=== PATIENT | female | born 1990 | race African-American/Black ===

== ENCOUNTER 2024-03-09 10:01 | Outpatient (AMB) | payer SELFPAY ==
--- NOTE | 2024-03-09 10:08 | A.OFFPC_ITS ---
Vital Signs 03/09/24 10:09 Height 5 ft 7 in Weight 167 lb 8 oz BMI 26.2 BP 112/68 Blood Pressure Location Lt brachial Position Sitting Pulse 76 Pulse Source Pulse Oximeter Intake Visit Reasons: [employer], requests physical Intake Note: Patient is a new patient, would like referral for allergy testing, and she notices she tilts to her left after giving to her daughter in 2022. She would like her iron level. Allergies No Known Allergies Allergy (Verified 03/09/24 10:11) Medication List - Last Reconciled 03/09/24 by Juventino Hernández MD No Known Home Meds Tobacco use date assessed: 03/09/24 Dental Screening Dental Screen Date: 03/09/24 Did you have a dental visit in the last 12 months?: Yes Did you have a dental problem in the last 6 months where you did not have access to dental care?: No Was dental information given to patient?: Patient has dentist HPI [employer], requests physical HPI Details New patient Prior PCP:??No?prior?PCP Acute issue(s): Low Iron & Anemia after Irritation?of?skin?with?contact?with?certain?substances Patient?feels?that?she?list to?left?and?has?low?back?pain?and?hip/pelvis?pain?since?. PMHx: Anemia, SurgHx: None FHx: Mom: Thyroiditis Dad: Scoliosis, Brother: Scoliosis. SocHx: Nonsmoker, EtOH None. No drugs PFSH Medical History (Updated 03/09/24 @ 10:56 by Elroy Gabriel) No pertinent past medical history Surgical History (Updated 03/09/24 @ 10:15 by Kimberly Olivares CMA) No pertinent past surgical history Family History (Updated 03/09/24 @ 10:17 by Kimberly Olivares CMA) Paternal Grandmother Diabetes Paternal Uncle Diabetes Social History (Updated 03/09/24 @ 10:21 by Kimberly Olivares CMA) Household Members: Children Both parents involved: Yes (do not live with her) Caregiver staying overnight: No Housing: Apartment Are you a primary gericare aide to a significant other at home: No Do you presently have visiting nurse or other home services: No Alcohol intake: former Patient Tobacco Use Status: Former Tobacco user e-Cigarette/Vaping Use: Former Use service: No Current occupational status: employed Current occupation: nurses aide Cognitive needs: No Hearing needs: No Vision needs: Yes (reading glasses.) Female Reproductive History Menstrual Date of last menstrual period: 02/22/24 control method: none Questionnaire PHQ-9 Over the last 2 weeks, how often have you been bothered by any of the following problems? 1. Little interest or pleasure in doing things: not at all 2. Feeling down, depressed, or hopeless: not at all 3. Trouble falling or staying asleep, or sleeping too much: not at all 4. Feeling tired or having little energy: nearly every day 5. Poor appetite or overeating: not at all 6. Feeling bad about yourself - or that you are a failure or have let yourself or your family down: not at all 7. Trouble concentrating on things, such as reading the newspaper or watching television: several days 8. Moving or speaking so slowly that other people could have noticed. Or the opposite - being so fidgety or restless that you have been moving around a lot more than usual: not at all 9. Thoughts that you would be better off or of hurting yourself in some way: not at all Total score: 4 Depression Screening Interpretation: Negative Depression Screening Done: Yes 05211 - PHQ-9 Billing: Yes Source: Developed by Drs. Maxwell Juarez, Mahsa Abbott, Bert Anna and colleagues, with an educational moshe from [employer]. Thrive Questionnaire Date Thrive assessed: 03/09/24 I am a: Patient What is your living situation today?: I have a steady place to live Within the past 12 months, did the food you bought not last and you didn't have the money to get more?: Never true Within the past 12 months, did you worry whether your food would run out before you got money to buy more?: Never true Do you have trouble paying for medicines?: No Do you have trouble getting transportation to medical appointments?: No Do you have trouble paying your heating and electricity bill?: No Do you have trouble taking care of your child, family member or friend?: No Do you have trouble with day-to-day activities such as bathing, preparing meals, shopping, managing finances, etc.?: No Are you currently unemployed and looking for a job?: No Are you interested in more education?: Yes THRIVE Score: 0 AUDIT C Alcohol Use Questionnaire (AUDIT-C) 1. How often do you have a drink containing alcohol?: Never 3. How often do you have six or more drinks on one occasion?: Never Total Score: 0 ZAN-7 AMB Questionnaire ZAN-7 Date ZAN - 7 assessed: 03/09/24 Feeling nervous, anxious, or on edge: 0 = Not at all Not being able to stop or control worryin = Not at all Worrying too much about different things: 0 = Not at all Trouble relaxin = Not at all Being so restless that it is hard to sit still: 0 = Not at all Becoming easily annoyed or irritable: 0 = Not at all Feeling afraid as if something awful might happen: 0 = Not at all Total ZAN-7 score (0-4 normal; 5-9 mild; 10-14 moderate; 15-21 severe): 0 Source: Developed by Drs. Maxwell Juarez, Mahsa Abbott, Bert Anna and colleagues, with an educational moshe from [employer]. ZAN-7 Assessment Billing ZAN-7 Assessment Tool: ZAN-7 Assessment 06294 Review of Systems Const Denies chills, Denies fatigue, Denies fever(s), Denies headache(s) and Denies weakness ENT Denies dizziness and Denies headache(s) Card Denies chest pain, Denies lightheadedness, Denies dyspnea and Denies other (Palpitations) Resp Denies cough, Denies dyspnea, Denies wheezing and Denies other ( shortness of breath) Musc Details: Some?low?back?pain?with?discomfort?in?pelvis?and?hips?as?well.??Patient?feels?th at?she?leans?to?the?left?side.??Started?with?. Denies numbness and Denies tingling Skin/Breast Details: Irritation?of?skin?with?contact?with?certain?things?such?as?gloves. Neuro Denies dizziness, Denies headache(s), Denies numbness, Denies tingling, Denies paresthesias and Denies weakness Psych Denies anxiety and Denies depression Endo Denies fatigue Aller/Immun Denies wheezing Physical exam (Primary Care) Vital Signs: Last Vital Signs Pulse 76 03/09/24 10:09 BP 112/68 03/09/24 10:09 BMI result Body Mass Index 26.2 Tobacco/Smoking Status: Tobacco use Status Tobacco use date assessed 03/09/24 03/09/24 10:30 Patient Tobacco Use Status Former Tobacco user 03/09/24 10:30 e-Cigarette/Vaping Use Former Use 03/09/24 10:30 PHQ-9: PHQ-9 Score PHQ-9: Total score 4 03/09/24 10:43 Depression Screening Interpretation: Negative Thrive Assessment: Date of Thrive Assessment Date Thrive assessed 03/09/24 03/09/24 10:30 Const General: no acute distress and well developed Nutritional Appearance: well nourished Orientation/consciousness: patient oriented x3 HENMT Head: Yes normocephalic and Yes atraumatic Eyes General: appearance normal, both eyes and all related structures Pupils: Equal, round and reactive pupils present EOM: EOMs intact bilaterally Resp Effort & Inspection: normal respiratory effort Auscultation: clear to auscultation bilaterally Cardio Rate: regular rate Rhythm: regular rhythm Heart sounds: S1 normal heart sound present, S2 normal heart sound present, no gallops, no murmurs and no rubs Back/Spine/Pelvis Other: Posture?and?carriage?appear?normal.??Normal?gait. Neuro General: patient oriented x3 and gait normal Cranial nerves: Yes Equal, round and reactive pupils present Psych Affect: normal affect Assessment and Plan Assessment & Plan (1) Allergies: Code(s): T78.40XA - Allergy, unspecified, initial encounter Plan: Referred?to?immunology?for?testing?as?per?patient?request (2) History of anemia: Code(s): Z86.2 - Personal history of diseases of the blood and blood-forming organs and certain disorders involving the immune mechanism Plan: Check?CBC?and?iron?level (3) Low back pain: Code(s): M54.50 - Low back pain, unspecified Plan: Low?back?pain?and?hip?pain?with?laxity?of?muscles?tendons?and?ligaments?of?the?l umbar?spine?and?pelvis/hips?since?. Start?physical?therapy (4) Laboratory exam ordered as part of routine general medical examination: Code(s): Z00.00 - Encounter for general adult medical examination without abnormal findings Plan: Check?lab Orders: Orders Comprehensive [place]. Panel Fast Today Z00.00 - Encounter for general adult medical examination without abnormal findings Complete Blood Count Auto Diff Today Z00.00 - Encounter for general adult medical examination without abnormal findings Microalbumin, Random (w Creat) Today I10 - Essential (primary) hypertension IRON PROFILE Today Z00.00 - Encounter for general adult medical examination without abnormal findings PT Evaluation and Treatment Today M54.50 - Low back pain, unspecified Lipid Panel Today Z00.00 - Encounter for general adult medical examination without abnormal findings TSH reflex Free T4 Today Z00.00 - Encounter for general adult medical examination without abnormal findings UA and rflx microscopic Today Z00.00 - Encounter for general adult medical examination without abnormal findings Vitamin B12 and Folate Today E53.8 - Deficiency of other specified B group vitamins CT NG by PCR Today Z11.3 - Encounter for screening for infections with a predominantly sexual mode of transmission Hepatitis B,C Profile Today Z11.3 - Encounter for screening for infections with a predominantly sexual mode of transmission Syphilis Screen Today Z11.3 - Encounter for screening for infections with a predominantly sexual mode of transmission HIV Ab/Ag Today Z11.3 - Encounter for screening for infections with a predominantly sexual mode of transmission Referrals Allergy & Immunology Referral T78.40XA - Allergy, unspecified, initial encounter Coding Level of Care Code New Pt Level 3 (68863) Diagnoses Allergies T78.40XA History of anemia Z86.2 Low back pain M54.50 Laboratory exam ordered as part of routine general medical examination Z00.00 Additional Codes ZAN-7 Assessment Billing - ZAN-7 Assessment Tool: ZAN-7 Assessment [id number] ([id number])
[2024-03-09 10:09] VITALS: BP 112/68; PULSE 76; BMI 26.2
== END 2024-03-09 11:13 | disposition home or self-care (01) ==
PROVIDERS: PCP Family Medicine; Visit Provider Family Medicine
DX: T78.40XA Allergy, unspecified, initial encounter (principal); Z86.2 Personal history of diseases of the blood and blood-forming organs and certain disorders involving the immune mechanism; M54.50 Low back pain, unspecified; Z00.00 Encounter for general adult medical examination without abnormal findings
CPT/HCPCS: 99203

== ENCOUNTER 2024-03-09 11:28 | Outpatient (REF) | payer OTHER, SELFPAY ==
[2024-03-09 15:04] LABS: Basophils Percent Auto 0.6 % (0-2); Eosinophils Percent Auto 0.3 % (0-4); Hematocrit 34.6 % (37.0-47.0); Imm Gran Abs Auto 0.01 X10*3/uL (0.00-0.03); Imm Gran Pct Auto 0.3 % (0.0-0.4); Lymphocytes Absolute Auto 1.6 X10*3/uL (1.2-4.9); Lymphocytes Percent Auto 52.1 % (20-40); MANUAL DIFF FLAG SCAN; Mean Corpuscular HGB Conc 31.8 g/dl (31.0-35.0); Mean Corpuscular Hemoglobin 27.6 pg (27.0-33.0); Mean Corpuscular Volume 86.9 fL (80.0-98.0); Mean Platelet Volume 10.4 fL (9.4-12.3); Monocytes Absolute Auto 0.3 X10*3/uL (0.1-1.2); Monocytes Percent Auto 8.3 % (2-11); Neutrophils Absolute Auto 1.2 x10*3/uL (2.0-8.3); Neutrophils Percent Auto 38.4 % (45-73); Platelet Count 304 X10*3/uL (160-400); Red Blood Count 3.98 X10*6/uL (4.20-5.50); SCAN SMEAR FLAG 1; White Blood Count 3.1 X10*3/uL (4.8-10.8)
[2024-03-09 15:20] LABS: Appearance Urine Turbid; Color Urine Yellow; Glucose Urine UA Negative (Negative); Leukocyte Esterase Urine Trace (Negative); Nitrite Urine Negative (Negative); Specific Gravity - Urine >= 1.030 (1.005-1.025); UMIC TRIGGER UA YES; Urine Blood Negative (Negative); Urine Ketones Trace mg/dL (Negative); Urine Protein Negative (Neg-Trace)
[2024-03-09 15:24] LABS: Bacteria Urine None Seen (None Seen); Hyaline Casts Urine 0-2 /LPF (0-2); RBC Urine 0-2 /HPF (0-2); WBC Urine 0-5 /HPF (0-5)
[2024-03-09 15:32] LABS: SLIDE REVIEW VERIFIED
[2024-03-09 15:34] LABS: Creatinine Urine 319.44 mg/dL; Microalbum/Creatinine Ratio Ur 4.3 ug/mg cr (<30)
[2024-03-09 15:55] LABS: Alanine Aminotransferase 10 U/L (0-31); Albumin Level 4.1 g/dL (3.5-5.0); Alkaline Phosphatase 45 U/L (39-117); Anion Gap 10 (12-20); Aspartate Amino Transferase 15 U/L (5-31); Bilirubin Total 0.5 mg/dL (0.0-1.0); Blood Urea Nitrogen 8 mg/dL (9-16); Calcium 9.1 mg/dL (8.4-10.2); Carbon Dioxide 25 mmol/L (22-29); Chloride 107 mmol/L (96-108); Cholesterol 200 mg/dL (<200); Estimated Glomerular Filt Rate > 60; Glucose Fasting 83 mg/dL (60-99); HDL Cholesterol 55 mg/dL (>40); Iron 48 mcg/dL (30-160); LDL Cholesterol Calculated 133 mg/dL (<100); Percent Iron Saturation 18 % (15-50); Potassium 3.9 mmol/L (3.3-5.1); Sodium 138 mmol/L (135-145); Total Iron Binding Capacity 274 mcg/dL (228-428); Total Protein 6.8 g/dL (6.5-8.0); Triglycerides 64 mg/dL (<150); Unsaturated Iron Binding 226 ug/dL
[2024-03-09 16:42] LABS: TSH reflex Free T4 0.34 uIU/mL (0.32-4.0)
[2024-03-09 18:17] LABS: Folate 7.2 ng/mL (> or = 4.0); Vitamin B12 520 pg/mL (200-900)
[2024-03-10 07:59] LABS: Syphilis Screen Nonreactive (Nonreactive)
[2024-03-10 08:38] LABS: HBS Num1 148.59 mIU/mL (0-7.99); HBc Num1 0.07 S/CO (0.00-0.79); HBsAGNum1 0.34 S/CO (0.00-0.99); HIV AB/AG Nonreactive (Nonreactive); HIV Num 1 0.05 S/CO (0.00-0.99); Hepatitis B Core Antibody Nonreactive (Nonreactive); Hepatitis B Surface Antigen Negative (Negative); ~HepC Num1 0.07 S/CO (0.00-0.79); ~Hepatitis B Surface Antibody REACTIVE (Nonreactive); ~Hepatitis C Antibody Nonreactive (Nonreactive)
== END 2024-03-09 11:29 | disposition home or self-care (01) ==
LOC: HO.WFDLDS 11:28
PROVIDERS: Visit Provider Family Medicine
DX: Z00.00 Encounter for general adult medical examination without abnormal findings (principal); Z11.3 Encounter for screening for infections with a predominantly sexual mode of transmission; Z11.4 Encounter for screening for human immunodeficiency virus [HIV]; E53.8 Deficiency of other specified B group vitamins; I10 Essential (primary) hypertension
CPT/HCPCS: 36415; 80053; 80061; 81001; 81003; 82043; 82570; 82607; 82746; 83540; 84443; 85025; 86704; 86706; 86780; 86803; 87340; 87389